=== PATIENT | female | born 1945 | race Caucasian/White ===

== ENCOUNTER → 2018-03-30 | Outpatient (CLI) | payer MEDICARE, OTHER ==
--- NOTE | 2018-03-30 14:57 | Diagnostic Imaging Report ---
INDICATION: Tobacco use qualifying for lung screening. The patient has a [id number]-[id number] smoking history. COMPARISON: No prior examinations are available for Comparison. TECHNIQUE: Multiple contiguous low-dose CT images were obtained through the chest without the use of intravenous contrast. Sagittal and coronal reformations were then performed. FINDINGS: There is a 2 mm nodule in the anterior aspect of the right upper lobe on image 83/series 4. There is a 6 mm nodule in the right middle lobe on image 89/series 4. There is a 4 mm noncalcified nodule in the right middle lobe on image 142/series 4. There is a 5.4 mm nodule in the right middle lobe on image 188/series 4. There is a 9 mm nodule in the lingula on image 196/series 4. There is biapical pleural thickening or scarring. There are several other tiny smaller nodules. There is no pleural or pericardial fluid. There is no pneumothorax. The heart size is normal. There are no coronary artery calcifications. The visualized intra-abdominal structures are unremarkable. IMPRESSION: There are multiple noncalcified nodular densities. The largest nodule is seen in the lingula and measures 9 mm. Further evaluation with a PET scan is recommended. LUNG-RADS CATEGORY: 4. Dictated by: Dictated on workstation # [id number]
== END ==
LOC: RAD 11:30
PROVIDERS: ATTEND Nurse Practitioner Family
DX: Z12.2 Encounter for screening for malignant neoplasm of respiratory organs (principal); J98.4 Other disorders of lung; Z87.891 Personal history of nicotine dependence

== ENCOUNTER → 2018-04-07 | Outpatient (CLI) | payer MEDICARE ==
--- NOTE | 2018-04-07 14:33 | Diagnostic Imaging Report ---
INDICATION: Lung mass. Serum blood glucose level at the time of injection is 118 mg/dL. Patient was administered 10.5 mCi F-18 FDG intravenously administered in the left antecubital location and PET imaging was performed from the top of the skull to the mid thighs. In addition, noncontrast CT was performed for attenuation correction and anatomic correlation. No prior PET studies are available for comparison. Comparison is made with a low-dose CT chest study performed on 03/30/2018. FINDINGS: There is symmetric activity throughout the brain. The soft tissues of the neck are unremarkable. No suspicious hypermetabolism within the chest is identified. Specifically, no hypermetabolic pulmonary nodules are seen. Mediastinum and xiang are unremarkable. There is physiologic activity within the abdomen, GI and tracts. No abnormal hypermetabolism is identified. IMPRESSION: Unremarkable PET CT study. No suspicious thoracic hypermetabolism is seen. Even so, continued chest CT followup of previously noted pulmonary nodules in 6 months is recommended to confirm stability. Dictated by: Dictated on workstation # [id number]
== END ==
LOC: RAD 11:00
PROVIDERS: ATTEND Nurse Practitioner Family
DX: R91.8 Other nonspecific abnormal finding of lung field (principal); J43.9 Emphysema, unspecified; Z87.891 Personal history of nicotine dependence

== ENCOUNTER → 2018-04-16 | Outpatient (CLI) | payer MEDICARE | END | disposition home or self-care (01) | LOC: PREOP 06:07 | PROVIDERS: ATTEND Internal Medicine Critical Care Medicine | DX: Z01.818 Encounter for other preprocedural examination (principal) ==

== ENCOUNTER → 2018-09-21 | Outpatient (CLI) | payer MEDICARE ==
--- NOTE | 2018-09-21 10:59 | Diagnostic Imaging Report ---
PROCEDURE: CT chest without contrast. TECHNIQUE: Multiple contiguous axial images were obtained through the chest without the use of intravenous contrast. Auto Exposure Controls were utilized during the CT exam to meet ALARA standards for radiation dose reduction. INDICATION: Lung mass. Patient presents for six-month followup. COMPARISON: Correlation is made with CT chest screening study from 03/30/2018. FINDINGS: No axillary lymphadenopathy is detected. Mediastinal and hilar evaluation is limited without intravenous contrast. No pericardial or pleural fluid is identified. Parenchymal evaluation demonstrates tiny subpleural nodule in the anterolateral right upper lobe, stable at approximately 2 mm Image #12 series 3. Small nodule in the medial aspect of the right upper lobe is stable at 5 mm, image #13 series 3. Previously noted right middle lobe nodules are much less prominent when compared with prior. The more cephalad nodule is no longer visualized. More inferiorly the nodule has decreased measuring 4 mm in size compared with approximately 5 mm on prior exam. There is some mild bronchiectasis present. Lingular nodule measures slightly smaller on today's study at 6 mm compared with 9 mm, image #27. No new abnormality is seen. The upper abdomen is unremarkable. IMPRESSION: Stable to improved appearance to the chest when compared with prior study from 03/30/2018. Additional followup in six months is recommended to show continued stability. Dictated by: Dictated on workstation # [id number]
== END ==
LOC: RAD 10:27
PROVIDERS: ATTEND Nurse Practitioner Family
DX: J43.9 Emphysema, unspecified (principal); J30.9 Allergic rhinitis, unspecified; R91.8 Other nonspecific abnormal finding of lung field
CPT/HCPCS: 71250